=== PATIENT | male | born 2005 | race Caucasian/White ===

== ENCOUNTER 2023-04-17 13:41 | Emergency (ER) | payer SELFPAY ==
[2023-04-17 13:43] VITALS: BP 126/70; PULSE 95; RESP 14; TEMP 36.8; O2SAT 99
--- NOTE | 2023-04-17 14:46 | ED_ITS ---
HPI - General Adult General Chief complaint: Unspecified Stated complaint: need work note to return (recent illness) Time Seen by Provider: 04/17/23 13:52 History of Present Illness HPI narrative: 17-year-old male presenting for a note to go back to work. States that he had a low-grade fever the last 2 days. States that it has resolved and he feels well. He tried to go to work today and they told him that he needs a note to come back. He denies any complaints. Related Data Allergies Allergy/AdvReac Type Severity Reaction Status Date / Time No Known Allergies Allergy Verified 08/17/17 21:34 Review of Systems Review of Systems: All systems reviewed & are unremarkable except as noted in HPI and below Exam Narrative: GENERAL: Well-appearing, well-nourished, and in no acute distress. HEAD: Normocephalic, atraumatic. EYES: PERRLA and EOMI. ENT: Grossly unremarkable NECK: Supple. CHEST: Clear to auscultation. No respiratory distress. HEART: Regular rate and rhythm. EXTREMITIES: Normal range of motion. SKIN: Warm, dry, no rash. NEURO: Alert and oriented x3. PSYCH: Normal mood and affect. Course Vital Signs Vital signs: Vital Signs Temperature 98.2 F 04/17/23 13:43 Pulse Rate 95 04/17/23 13:43 Respiratory Rate 14 04/17/23 13:43 Blood Pressure 126/70 04/17/23 13:43 Pulse Oximetry 99 04/17/23 13:43 Oxygen Delivery Room Air 04/17/23 13:43 Temperature 98.2 F 04/17/23 13:43 Pulse Rate 95 04/17/23 13:43 Respiratory Rate 14 04/17/23 13:43 Blood Pressure 126/70 04/17/23 13:43 Pulse Oximetry 99 04/17/23 13:43 Oxygen Delivery Room Air 04/17/23 13:43 Medical Decision Making [facility] Narrative Medical decision making narrative: 17-year-old male presenting for a note to return to work. Vitals are stable. Exam is unremarkable. He denies any complaints. He is afebrile here. Will provide a work note and discharged. Differential Diagnosis Differential Diagnosis: Encounter for medical examination Vital Signs Vital Signs: Vital Signs Temperature 98.2 F 04/17/23 13:43 Pulse Rate 95 04/17/23 13:43 Respiratory Rate 14 04/17/23 13:43 Blood Pressure 126/70 04/17/23 13:43 Pulse Oximetry 99 04/17/23 13:43 Oxygen Delivery Room Air 04/17/23 13:43 Temperature 98.2 F 04/17/23 13:43 Pulse Rate 95 04/17/23 13:43 Respiratory Rate 14 04/17/23 13:43 Blood Pressure 126/70 04/17/23 13:43 Pulse Oximetry 99 04/17/23 13:43 Oxygen Delivery Room Air 04/17/23 13:43 Critical Care Time Critical Care Time Critical Care Time: No Discharge Plan Discharge Clinical Impression: Encounter for medical screening examination Patient Disposition: Home, Self-Care Condition: Stable Instructions: Antibiotic Form Follow-up/Referrals: PHYSICIAN,LOAN REPRESENTATIVE [Primary Care Provider] - Stand Alone Forms: Work/School Release IP
== END 2023-04-17 14:58 | disposition home or self-care (01) ==
PROVIDERS: Emergency Provider Emergency Medicine
DX: Z02.89 Encounter for other administrative examinations (principal)
CPT/HCPCS: 99281

== ENCOUNTER 2023-06-07 13:42 | Emergency (ER) | payer BC, SELFPAY ==
[2023-06-07 14:00] VITALS: BP 114/61; PULSE 94; RESP 15; TEMP 37.1; O2SAT 98
--- NOTE | 2023-06-07 14:29 | PC.NURSE ---
Pt declined to be seen due to wait time. This RN encouraged pt to stay for eval and made known wait time was not much longer. Pt cont. to decline, stating Im alright, I will come back if i need to. Dont want to wait. Pt ambulated out in NAD.
== END 2023-06-07 14:59 | disposition left against medical advice (07) ==
LOC: ANHED 14:36
DX: R05.9 Cough, unspecified (principal)
CPT/HCPCS: 99199

== ENCOUNTER 2023-10-08 15:05 | Emergency (ER) | payer OTHER, MEDICAID, SELFPAY ==
--- NOTE | ~2023-10-08 | XR_ITS ---
XR hand RT min 3V 10/08/2023 15:35 Indication: Soft tissue lacerations third and fourth fingers Procedure: 3 views right hand Comparison: No prior studies for comparison. Findings: There are soft tissue lacerations of the third and fourth fingers overlying the distal phal anges. No foreign bodies. No underlying fracture or traumatic malalignment. Impression: 1: No acute fracture. Reviewed, dictated and finalized at location B. Impression: 1: No acute fracture.
--- NOTE | 2023-10-08 15:16 | ED.UPPEXIN ---
HPI - Extremity Injury (Upper) General Chief Complaint: Extremity Injury, Upper <KIMBERLY Shepherd Last Filed: 10/08/23 16:09> Stated Complaint: right hand injury <KIMBERLY Shepherd Last Filed: 10/08/23 16:09> Time Seen by Provider: 10/08/23 15:16 <KIMBERLY Shepherd Last Filed: 10/08/23 16:09> Focused HPI: Patient is a 18 y/o male who presents to the ED with c/o laceration to his R fingers. Patient reports he was working on a fan in his car when the fan broke loose and cut his fingers. Sustained lacerations to 3rd and 4th digits. No other injuries. No numbness. Tetanus UTD. GENERAL: Well-appearing, well-nourished, and in no acute distress. HEAD: Normocephalic, atraumatic. CHEST: Clear to auscultation. ?No respiratory distress. HEART: Regular rate and rhythm.? MSK: Jagged curvilinear lacerations to R 3rd and 4th digit distal finger pads. Minimal active bleeding. Distal sensatoin intact. NEURO: ?Alert and oriented x3. Patient screened in triage and initial orders placed.? ?Additional care and disposition to be based upon?diagnostic testing and treatment. <KIMBERLY Shepherd Last Filed: 10/08/23 16:09> Source: patient <KIMBERLY Shepherd Last Filed: 10/08/23 16:09> Mode of arrival: ambulatory <KIMBERLY Shepherd Last Filed: 10/08/23 16:09> Limitations: no limitations <KIMBERLY Shepherd Last Filed: 10/08/23 16:09> Related Data Allergies/Adverse Reactions: Allergies Allergy/AdvReac Type Severity Reaction Status Date / Time pollen extracts Allergy Unknown Verified 06/07/23 14:07 <KIMBERLY Shepherd Last Filed: 10/08/23 16:09> Review of Systems Review of Systems: CONSTITUTIONAL: Denies fever SKIN: Reports laceration MUSCULOSKELETAL: Denies joint pain NEUROLOGIC: Denies numbness <Ellen Rodriguez PA-C - Last Filed: 10/08/23 22:24> All systems reviewed & are unremarkable except as noted in HPI and below <Ellen Rodriguez PA-C - Last Filed: 10/08/23 22:24> PMFSH Past Medical History Medical History: Medical History (Updated 10/08/23 @ 21:56 by Ellen Rodriguez PA-C) History of asthma <Mira Farmer PA-C - Last Filed: 10/08/23 16:09> Social History Social History: Social History (Updated 10/08/23 @ 19:40 by Ellen Rodriguez PA-C) Smoking status: Current some day smoker <Mira Farmer PA-C - Last Filed: 10/08/23 16:09> Exam Narrative: GENERAL: Well-appearing, well-nourished, and in no acute distress. HEAD: Normocephalic, atraumatic. EYES: EOMI. EXTREMITIES: Normal range of motion. No edema or obvious deformity. Right hand third and fourth fingers with irregular lacerations to the distal phalanx. Normal sensation, normal capillary refill SKIN: Warm, dry, no rash. NEURO: No focal deficits. Alert and oriented x3. PSYCH: Normal mood and affect <Ellen Rodriguez PA-C - Last Filed: 10/08/23 22:24> Course Course Emergency Course: patient and family educated on wound care <Ellen Rodriguez PA-C - Last Filed: 10/08/23 22:24> Vital Signs Vital signs: Vital Signs Temperature 97.8 F 10/08/23 15:19 Pulse Rate 99 10/08/23 15:19 Respiratory Rate 16 10/08/23 15:19 Blood Pressure 104/63 10/08/23 15:19 Pulse Oximetry 99 10/08/23 15:19 Oxygen Delivery Room Air 10/08/23 15:19 Temperature 97.8 F 10/08/23 15:19 Pulse Rate 99 10/08/23 15:19 Respiratory Rate 16 10/08/23 15:19 Blood Pressure 104/63 10/08/23 15:19 Pulse Oximetry 99 10/08/23 15:19 Oxygen Delivery Room Air 10/08/23 15:19 <Mira Farmer PA-C - Last Filed: 10/08/23 16:09> Vital Signs Temperature 97.8 F 10/08/23 15:19 Pulse Rate 99 10/08/23 15:19 Respiratory Rate 16 10/08/23 15:19 Blood Pressure 104/63 10/08/23 15:19 Pulse Oximetry 99 10/08/23 15:19 Oxygen Delivery Room Air 10/08/23 15:19 Tempera
[2023-10-08 15:19] VITALS: BP 104/63; PULSE 99; RESP 16; TEMP 36.6; O2SAT 99
[2023-10-08] MEDS: LIDOCAINE HCL 1% LOCAL INJ 10 ML VIAL 5 ML INFILTRATE (21:11)
--- NOTE | 2023-10-08 21:11 | PC.NURSE ---
sunita dominguez at bedside for sutures
[2023-10-08 22:34] VITALS: BP 110/76; PULSE 86; RESP 16; TEMP 36.6; O2SAT 98
--- NOTE | 2023-10-08 22:37 | PC.NURSE ---
sunita dominguez wrapped pt fingers after giving sutures.
== END 2023-10-08 22:37 | disposition home or self-care (01) ==
PROVIDERS: Emergency Provider Physician Assistant
DX: S61.212A Laceration without foreign body of right middle finger without damage to nail, initial encounter (principal); S61.214A Laceration without foreign body of right ring finger without damage to nail, initial encounter; W26.8XXA Contact with other sharp object(s), not elsewhere classified, initial encounter; F17.200 Nicotine dependence, unspecified, uncomplicated
CPT/HCPCS: 12002; 73130; 99283